=== PATIENT | female | born 1960 | race Caucasian/White ===

== ENCOUNTER 2020-02-09 10:08 | Emergency (ER) | payer OTHER ==
[2020-02-09 11:11] VITALS: BP 140/87
--- NOTE | 2020-02-09 11:12 | UC ---
Ear Complaint HPI - HPI Summary HPI Summary: left ear pain x 1 week pain is moderate , 4 out 10 , no radiation worse with wind / cold , better with heat sore throat, no cough , no chest congestion no fever, no chills - History of Current Complaint Chief Complaint: UCEar Stated Complaint: [place], EARACHE, ST Time Seen by Provider: 02/09/20 10:10 Hx Obtained From: Patient ?: No Onset/Duration: Gradual Onset, Lasting Weeks - 1, Still Present Severity Initially: Moderate Severity Currently: Moderate Pain Intensity: 1 Aggravating Factors: Cold Alleviating Factors: Heat Associated Signs/Symptoms: Positive: URI Symptoms. Negative: Discharge, Hearing Loss, Foreign Body Sensation, Trauma to Ear - Allergies/Home Medications Allergies/Adverse Reactions: Allergies Allergy/AdvReac Type Severity Reaction Status Date / Time No Known Allergies Allergy Verified 02/09/20 10:28 Home Medications: Home Medications Aspirin EC TAB* [Ecotrin EC Low Dose*] 81 mg PO DAILY 08/01/16 [History Confirmed 02/09/20] Enalapril TAB* [Vasotec TAB*] 10 mg PO DAILY 08/01/16 [History Confirmed ] Hydrochlorothiazide TAB* [Hydrodiuril TAB*] 12.5 mg PO DAILY 08/01/16 [History Confirmed 02/09/20] Acetaminophen [Acetaminophen Extra Strength] 1,000 mg PO Q4H PRN 02/09/20 [ History Confirmed 02/09/20] Fluticasone NASAL SPRAY 50MCG* [Flonase NASAL SPRAY 50MCG*] 2 spray BOTH NARES DAILY #1 btl 02/09/20 [Rx] Pravastatin Sodium 10 mg PO QPM 02/09/20 [History Confirmed 02/09/20] metFORMIN* [Glucophage 500 MG TAB *] 500 mg PO QPM 02/09/20 [History Confirmed 02/09/20] PMH/Surg Hx/FS Hx/Imm Hx Endocrine History: Diabetes Cardiovascular History: Hypertension - Surgical History Surgical History: Yes Surgery Procedure, Year, and Place: hysterectomy, loren, csection - Family History Known Family History: Positive: Cardiac Disease, Hypertension, Diabetes - Social History Alcohol Use: Occasionally Substance Use Type: None Smoking Status (MU): Never Smoked Tobacco Review of Systems All Other Systems Reviewed And Are Negative: Yes Constitutional: Positive: Negative Skin: Positive: Negative Eyes: Positive: Negative ENT: Positive: Sore Throat, Ear Ache Respiratory: Negative: Cough Is Patient Immunocompromised?: No Ear Complaint Course/Dx - Differential Dx/Diagnosis Provider Diagnosis: Otalgia of left ear Discharge ED - Sign-Out/Discharge Documenting (check all that apply): Patient Departure All imaging exams completed and their final reports reviewed: No Studies - Discharge Plan Condition: Stable Disposition: HOME Prescriptions: Fluticasone NASAL SPRAY 50MCG* [Flonase NASAL SPRAY 50MCG*] 2 spray BOTH NARES DAILY #1 btl Patient Education Materials: Earache (ED) Referrals: Karey Deras NP [Primary Care Provider] - If Needed - Billing Disposition and Condition Condition: STABLE Disposition: Home
== END 2020-02-09 11:15 | disposition home or self-care (01) ==
LOC: UCCORT 10:08
DX: H92.02 Otalgia, left ear (principal); J02.9 Acute pharyngitis, unspecified; E11.9 Type 2 diabetes mellitus without complications; I10 Essential (primary) hypertension; Z79.84 Long term (current) use of oral hypoglycemic drugs; Z79.82 Long term (current) use of aspirin; Z79.899 Other long term (current) drug therapy
CPT/HCPCS: 87651; 99212; G0463